=== PATIENT | male | born 1990 | race Caucasian/White ===

== ENCOUNTER 2019-10-15 09:08 | Emergency (ER) | payer BC ==
[~2019-10-15] VITALS: Ht 182.9 cm; Wt 117.7 kg
[2019-10-15] MEDS ORDERED: SODIUM CHLORIDE 0.9% 1000ML 1,000 ML IV STA ×2 (09:37→10:26)
[2019-10-15] MEDS ORDERED: KETOROLAC TROMETHAMINE 30 MG/ML VIAL IV STA (09:37)
[2019-10-15] MEDS ORDERED: SODIUM CHLORIDE FLUSH 10 ML SYR INJ PRN (09:45)
[2019-10-15] MEDS ORDERED: KETOROLAC TROMETHAMINE 30 MG/ML VIAL ONE (09:57)
[2019-10-15] MEDS ORDERED: SODIUM CHLORIDE 0.9% 1000ML 0 ML ONE (09:57)
[2019-10-15] MEDS ORDERED: SODIUM CHLORIDE 0.9% 1000ML 1,000 ML ONE ×2 (09:59→10:13)
--- NOTE | 2019-10-15 11:10 | Diagnostic Imaging Report ---
CT of the abdomen and pelvis, without contrast. History: Flank pain. Comparison: 02/14/2019. Technique: Multidetector CT scanning of the abdomen and pelvis was performed from the level of the lung bases to the inferior pubic rami without these contrast material. Coronal and sagittal multiplanar reformations were obtained. RADIATION DOSE: Total DLP: 799.85 mGy*cm Dose modulation, iterative reconstruction, and/or weight based adjustment of the mA/kV was utilized to reduce the radiation dose to as low as reasonably achievable. FINDINGS: Stable appearing subsegmental atelectasis/scarring noted within the right middle lobe. The visualized lungs are otherwise unremarkable. The imaged portion of the heart demonstrates no significant abnormalities. The liver is normal in size and attenuation without evidence for focal abnormality. The stomach, spleen, pancreas, and bilateral adrenal glands demonstrate unremarkable noncontrast appearance. The kidneys are normal in size and location. There is a 4 mm nonobstructing stone identified within the mid right kidney, unchanged from the prior examination. There are 2 nonobstructing calculi identified within the inferior pole the left kidney measuring up to 3 mm. There is no evidence for hydronephrosis. No ureteral stone or dilatation is appreciated. The urinary bladder demonstrates no significant abnormalities. The prostate is unremarkable. The abdominal aorta and IVC are normal in course and caliber. Please note evaluation the bowel is limited without the use of enteric contrast material. The visualized loops of small and large bowel demonstrate no evidence of obstruction or inflammation. The appendix is visualized and appears unremarkable. There is no ascites or intracranial free air. No abnormally enlarged lymph nodes are identified within the abdomen or pelvis. The osseous structures demonstrate no evidence for acute fracture or destructive process. The extraperitoneal soft tissues are unremarkable. IMPRESSION: Bilateral subcentimeter nonobstructive renal calculi. No evidence for hydronephrosis or obstructive uropathy. No other acute abdominopelvic process identified. Signed by: Dr. Nakul Toribio MD on 10/15/2019 11:06 AM
[2019-10-15] MEDS ORDERED: CYCLOBENZAPRINE5 MG PO (11:23)
[2019-10-15] MEDS ORDERED: KETOROLAC TROME10 MG PO (11:23)
--- NOTE | 2019-10-15 11:23 | Emergency Department Note ---
History of Present Illnes History of Present Illness Chief Complaint: left flank/left lbp History of Present Illness This is a 29 year old male. was doing well until 4 days ago then left lbp/flank pain. +similar to kidney stone pain. then 3 days ago then rgt hamstring pain while sprinting Historian: Patient Arrival Mode: Car History limited by: condition of the patient (normal) Sound Printer Required: No Onset (how long ago): day(s) (4) Location: left lbp Quality: sharp Radiation: Reports non-radiation Severity: moderate Onset quality: gradual Duration (how long): day(s) (4) Timing of current episode: constant Progression: unchanged Chronicity: recurrent Relieving factors: rest Exacerbating factors: movement Associated symptoms: Reports denies other symptoms Treatments prior to arrival: none Past Medical/Family History Physician Review I have reviewed the patient's past medical and family history. Any updates have been documented here. Past Medical History Recent Fever: No Clinical Suspicion of Infectio: No New/Unexplained Change in Ment: No Past Medical History: Kidney Stones Other Medical History: ADHD Other Surgery: kidney stone removal Social History Smoking Cessation: Never Smoker Counseling Performed: No Alcohol Use: Occasional Any Illegal Drug Use: No TB Exposure/Symptoms: No Physically hurt or threatened: No Family History Family history of heart diseas: No Other Last Tetanus: DENIES Any Pre-Existing Lines (PICC,: No Is patient up to date on immun: Yes Last Flu: none Last Pneumovax: none Review of Systems Review of Systems Constitutional: Reports no symptoms EENTM: Reports no symptoms Cardiovascular: Reports no symptoms Respiratory: Reports no symptoms Gastrointestinal: Reports no symptoms Genitourinary: Reports no symptoms Musculoskeletal: Reports as per HPI, Reports back pain, Reports muscle pain Integumentary: Reports no symptoms Neurological: Reports no symptoms Psychological: Reports no symptoms Endocrine: Reports no symptoms Hematological/Lymphatic: Reports no symptoms Review of other systems: All other systems negative Physical Exam Related Data Allergies: Coded Allergies: No Known Allergies (Unverified , 02/14/19) Triage Vital Signs Vital Signs Date Time Temp Pulse Resp B/P (MAP) Pulse Ox O2 Delivery O2 Flow Rate FiO2 10/15/19 09:13 97.6 78 18 143/83 98 Vital signs reviewed: Yes Physical Exam CONSTITUTIONAL Constitutional: Present well-developed, Present well-nourished HENT HENT: Present normocephalic, Present atraumatic, Present nose normal, Present other (dry mm) HENT L/R: Present left ext ear normal, Present right ext ear normal EYES Eyes: Reports PERRL, Reports conjunctivae normal NECK Neck: Present ROM normal, Present supple PULMONARY Pulmonary: Present effort normal, Present breath sounds normal CARDIOVASCULAR Cardiovascular: Present regular rhythm, Present heart sounds normal, Present capillary refill normal, Present normal rate GASTROINTESTINAL Abdominal: Present soft, Present nontender, Present bowel sounds normal GENITOURINARY Genitourinary: Present exam deferred SKIN Skin: Present warm, Present dry MUSCULOSKELETAL Musculoskeletal: Present ROM normal, Present other (+muscle spasms lower back, tenderness rgt hamstring) NEUROLOGICAL Neurological: Present alert, Present oriented x 3, Present no gross motor or sensory deficits PSYCHOLOGICAL Psychological: Present mood/affect normal, Present judgement normal Results Laboratory Lab results reviewed: Yes (nl cbc, nl cmp except ck 1700's) Imaging Imaging results reviewed: Yes (ct scan ) Impressions [place] [id number] Patient Name: NILAM RYDER MR #: [id number] : 1990 Age/Sex: 29/M Req #: [id number] Adm Physician: Ordered by: LORI SALAZAR Report #: [id number] Location: [facility] Room/Bed: Procedure: [id number] HOPD/CT ABD/PEL WO CONTRAST-HOPD Exam Date: 10/15/19 Exam Time: 09 REPORT STATUS: Signed CT of the abdomen and pelvis, without contrast. History: Flank pain. Comparison: 02/14/2019. Technique: Multidetector CT scanning of the abdomen and pelvis was performed from the level of the lung bases to the inferior pubic rami without these contrast material. Coronal and sagittal multiplanar reformations were obtained. RADIATION DOSE: Total DLP: 799.85 mGy*cm Dose modulation, iterative reconstruction, and/or weight based adjustment of the mA/kV was utilized to reduce the radiation dose to as low as reasonably achievable. FINDINGS: Stable appearing subsegmental atelectasis/scarring noted within the right middle lobe. The visualized lungs are otherwise unremarkable. The imaged portion of the heart demonstrates no significant abnormalities. The liver is normal in size and attenuation without evidence for focal abnormality. The stomach, spleen, pancreas, and bilateral adrenal glands demonstrate unremarkable noncontrast appearance. The kidneys are normal in size and location. There is a 4 mm nonobstructing stone identified within the mid right kidney, unchanged from the prior examination. There are 2 nonobstructing calculi identified within the inferior pole the left kidney measuring up to 3 mm. There is no evidence for hydronephrosis. No ureteral stone or dilatation is appreciated. The urinary bladder demonstrates no significant abnormalities. The prostate is unremarkable. The abdominal aorta and IVC are normal in course and caliber. Please note evaluation the bowel is limited without the use of enteric contrast material. The visualized loops of small and large bowel demonstrate no evidence of obstruction or inflammation. The appendix is visualized and appears unremarkable. There is no ascites or intracranial free air. No abnormally enlarged lymph nodes are identified within the abdomen or pelvis. The osseous structures demonstrate no evidence for acute fracture or destructive process. The extraperitoneal soft tissues are unremarkable. IMPRESSION: Bilateral subcentimeter nonobstructive renal calculi. No evidence for hydronephrosis or obstructive uropathy. No other acute abdominopelvic process identified. Signed by: Dr. Nakul Toribio MD on 10/15/2019 11:06 AM Dictated By: NAKUL TORIBIO MD [id number] Transcribed By: MEGAN on 10/15/19 1106 COPY TO: LORI SALAZAR~ Assessment & Plan Medical Decision Making MDM kidney stone, strain muscles Reassessment Reassessment time: 11:10 Reassessment pt has no more pain Assessment & Plan Final Impression: (1) Back pain (2) Hamstring muscle strain (3) Dehydration Depart Disposition: HOME, SELF-CARE Last Vital Signs Date Time Temp Pulse Resp B/P (MAP) Pulse Ox O2 Delivery O2 Flow Rate FiO2 10/15/19 09:13 97.6 78 18 143/83 98 Home Meds Active Scripts Cyclobenzaprine Hcl (FLEXERIL) 5 Mg Tablet, 10 TAB PO Q8H PRN for MUSCLE SPASMS, #30 take after toradol(ketorolac) to control pain if need be Prov:MARIELORIAICHA HILTON 10/15/19 Ketorolac Tromethamine (TORADOL) 10 Mg Tablet, 10 TAB PO Q6H PRN for MODERATE PAIN (4-6), #20 1 Refill Prov:MARIELORI LEE 10/15/19 Medications in the ED Sodium Chloride 10 ml PRN PRN INJ IV SITE FLUSH; Start 10/15/19 at 09:45; Stop 11/14/19 at 09:44 Sodium Chloride 1,000 ml @ 1,000 mls/hr Q1H STAT IV Last administered on 10/15/19at 09:55; Admin Dose 1,000 MLS/HR; Start 10/15/19 at 09:37; Stop 10/15/19 at 10:36; Status DC Ketorolac Tromethamine 30 mg ONCE STAT IV Last administered on 10/15/19at 09:55; Admin Dose 30 MG; Start 10/15/19 at 09:37; Stop 10/15/19 at 09:44; Status DC Ketorolac Tromethamine 30 mg STK-MED ONCE .ROUTE ; Start 10/15/19 at 09:57; Stop 10/15/19 at 09:54; Status DC Sodium Chloride 0 ml @ ud STK-MED ONCE .ROUTE ; Start 10/15/19 at 09:57; Stop 10/15/19 at 09:54; Status DC Sodium Chloride 1,000 ml @ ud STK-MED ONCE .ROUTE ; Start 10/15/19 at 09:59; Stop 10/15/19 at 09:54; Status DC Sodium Chloride 1,000 ml @ ud STK-MED ONCE .ROUTE ; Start 10/15/19 at 10:13; Stop 10/15/19 at 10:07; Status DC Sodium Chloride 1,000 ml @ 1,000 mls/hr Q1H STAT IV Last administered on 10/15/19at 10:11; Admin Dose 1,000 MLS/HR; Start 10/15/19 at 10:26; Stop 10/15/19 at 11:25 LORI SALAZAR Oct 15, 2019 11:23
== END 2019-10-15 11:36 | disposition home or self-care (01) ==
LOC: FSED 09:08
DX: M54.5 Low back pain (principal); E86.0 Dehydration; N20.0 Calculus of kidney; S76.811A Strain of other specified muscles, fascia and tendons at thigh level, right thigh, initial encounter; Y93.B9 Activity, other involving muscle strengthening exercises; F90.9 Attention-deficit hyperactivity disorder, unspecified type
CPT/HCPCS: 74176; 80048; 81003; 85025; 96374; 99284; J1885; J7030

== ENCOUNTER → 2022-03-24 | Day surgery (SDC) | payer BC ==
[2022-03-23 09:13] LABS: BASOPHILS % 0.4 % (0.0-1.0); EOSINOPHILS # (AUTO) 0.1 (0.0-0.4); EOSINOPHILS % 1.3 % (0.0-6.0); HEMATOCRIT 49.5 % (38.2-49.6); HEMOGLOBIN 15.8 g/dL (14.0-18.0); LYMPHOCYTES # (AUTO) 1.9 (1.0-3.2); LYMPHOCYTES % 26.1 % (18.0-39.1); MEAN CORPUSCULAR HEMOGLOBIN 29.4 pg (28-32); MEAN CORPUSCULAR HGB CONC 31.9 g/dL (31-35); MEAN CORPUSCULAR VOLUME 92.2 fL (81-99); MONOCYTES # (AUTO) 0.7 (0.2-0.8); MONOCYTES % 9.7 % (4.4-11.3); NEUTROPHILS # (AUTO) 4.4 (2.1-6.9); NEUTROPHILS % 62.4 % (38.7-80.0); PLATELET COUNT 281 x10e3/uL (140-360); RED BLOOD COUNT 5.37 x10e6/uL (4.3-5.7); RED CELL DISTRIBUTION WIDTH 11.7 % (11.7-14.4)
[2022-03-23 09:49] LABS: ANION GAP 14.1 mmol/L (8-16); CREATININE, SERUM 1.19 mg/dL (0.72-1.25); POTASSIUM 4.1 mmol/L (3.5-5.1)
[2022-03-23 09:50] LABS: ALBUMIN 4.7 g/dL (3.5-5.0); ALBUMIN/GLOBULIN RATIO 1.5 (0.8-2.0); CALCIUM 9.6 mg/dL (8.4-10.2)
[~2022-03-24] MED LIST: CEFTRIAXONE 1 GM VIAL ONE; CYCLOBENZAPRINE5 MG PO; DEXAMETHASONE SOD PHOS INJ 4 MG/ML SDV ONE; FENTANYL CITRATE/PF 100MCG/2 ML INJ ONE; FLOMAX0.4 MG PO; IOPAMIDOL 610MG/1ML 300 MG/ML VIAL IV ONE; KETOROLAC TROME10 MG PO; LIDOCAINE HCL 2% LOCAL INJ 5 ML SDV VIAL INJ ONE; MIDAZOLAM HCL 2 MG/2 ML VIAL ONE; ONDANSETRON HCL INJ 2MG/ML 2ML 2 MG/ML VIAL ONE; POVIDONE IODINE 0.05% 0.05 % ML PO ONE; PROPOFOL IV EMULSION 10 MG/ML 20 ML VIAL ONE
[2022-03-24 11:50] VITALS: BP 121/83
== END | disposition home or self-care (01) ==
LOC: OR 07:01
PROVIDERS: ATTEND Urology
DX: N20.0 Calculus of kidney (principal); Z01.812 Encounter for preprocedural laboratory examination; Z01.818 Encounter for other preprocedural examination
CPT/HCPCS: 36415; 50590; 74018; 80053; 83970; 84550; 85025; C1758; J0696; J1100; J2001; J2405; J2704; J3010; Q9967; J2250

== ENCOUNTER → 2022-04-30 | Day surgery (SDC) | payer BC ==
[2022-04-29 08:12] LABS: BASOPHILS % 0.3 % (0.0-1.0); EOSINOPHILS # (AUTO) 0.1 (0.0-0.4); EOSINOPHILS % 1.8 % (0.0-6.0); HEMATOCRIT 49.7 % (38.2-49.6); HEMOGLOBIN 15.7 g/dL (14.0-18.0); LYMPHOCYTES # (AUTO) 1.8 (1.0-3.2); LYMPHOCYTES % 30.5 % (18.0-39.1); MEAN CORPUSCULAR HEMOGLOBIN 28.5 pg (28-32); MEAN CORPUSCULAR HGB CONC 31.6 g/dL (31-35); MEAN CORPUSCULAR VOLUME 90.4 fL (81-99); MONOCYTES # (AUTO) 0.7 (0.2-0.8); MONOCYTES % 11.4 % (4.4-11.3); NEUTROPHILS # (AUTO) 3.3 (2.1-6.9); NEUTROPHILS % 55.7 % (38.7-80.0); PLATELET COUNT 334 x10e3/uL (140-360); RED CELL DISTRIBUTION WIDTH 11.1 % (11.7-14.4)
[2022-04-29 08:28] LABS: CALCIUM 9.2 mg/dL (8.4-10.2); CREATININE, SERUM 1.1 mg/dL (0.72-1.25)
[~2022-04-30] MED LIST changes: -DEXAMETHASONE SOD PHOS INJ 4 MG/ML SDV ONE; +HYDROCODONE/APAP 5MG-325MG TAB ONE; +HYDROMORPHONE 1MG/1ML INJ ONE; -IOPAMIDOL 610MG/1ML 300 MG/ML VIAL IV ONE; +KETOROLAC TROMETHAMINE 30 MG/ML VIAL ONE; -ONDANSETRON HCL INJ 2MG/ML 2ML 2 MG/ML VIAL ONE; +SEVOFLURANE INHAL SOLN 250 ML PEN BTL ONE
[2022-04-30 13:30] VITALS: BP 130/86
== END | disposition home or self-care (01) ==
LOC: OR 08:32
PROVIDERS: ATTEND Urology
DX: N20.1 Calculus of ureter (principal); N20.0 Calculus of kidney; Z01.812 Encounter for preprocedural laboratory examination; Z01.818 Encounter for other preprocedural examination
CPT/HCPCS: 36415; 50590; 74018; 80048; 84550; 85025; J0696; J1170; J1885; J2001; J2250; J2704; J3010